=== PATIENT | male | born 1970 | race African-American/Black ===

== ENCOUNTER 2019-04-06 09:06 | Emergency (ER) | payer BC, MEDICAID ==
[2019-04-06 09:33] VITALS: BP 138/94
[2019-04-06] MEDS ORDERED: FLUTICASONE NASAL SPRAY 50 MCG/SPRY 120 SPRAY/16 GM NASL ONE (10:25)
--- NOTE | 2019-04-06 10:31 | ER Document Report ---
HPI - HPI Patient complains to provider of: sore throat , stuffy nose Time Seen by Provider: 04/06/19 10:21 Onset: Other - 2 weeks nasal congestion, one week sore throat Quality of pain: Achy Pain Level: Denies Context: 49-year-old male with no prior history presents emergency department with complaints of nasal congestion sinus pain for the past 2 weeks with sore throat 1 week. Denies fever vomiting diarrhea. Reports he has taken [id number] medications without relief of symptoms. Reports his nose is stuffy and sometimes he cannot breathe out of his right nare. Denies cough. Denies abdominal pain. Reports he is eating drinking voiding bowel movement as normal. Associated Symptoms: Sinus pain/drainage, Sore throat Exacerbated by: Denies Relieved by: Denies Similar symptoms previously: No Recently seen / treated by doctor: No Past Medical History - General Information source: Patient - Social History Smoking Status: Current Every Day Smoker Cigarette use (# per day): Yes Chew tobacco use (# tins/day): No Frequency of alcohol use: None Drug Abuse: None Occupation: [employer] Family History: Reviewed & Not Pertinent Patient has suicidal ideation: No Patient has homicidal ideation: No - Medical History Medical History: Negative Past Surgical History: Reports: Other - hernia repair - Immunizations Hx Diphtheria, Pertussis, Tetanus Vaccination: Yes Vertical Provider Document - CONSTITUTIONAL Agree With Documented VS: Yes Exam Limitations: No Limitations General Appearance: WD/WN, No Apparent Distress - INFECTION CONTROL TRAVEL OUTSIDE OF THE [place] IN LAST 30 DAYS: No - HEENT HEENT: Atraumatic, Normocephalic, Pharyngeal Erythema - Tonsillar hypertrophy good airway clear voice. negative: Conjuctival Injection Notes: c/o maxillary sinus ttp - NECK Neck: Normal Inspection - Tonsillar hypertrophy, clear voice, opens mouth wide, Supple. negative: Lymphadenopathy-Left, Lymphadenopathy-Right - RESPIRATORY Respiratory: Breath Sounds Normal, No Respiratory Distress - CARDIOVASCULAR Cardiovascular: Regular Rate, Regular Rhythm - GI/ABDOMEN Gastrointestinal: Abdomen Soft, Abdomen Non-Tender - MUSCULOSKELETAL/EXTREMETIES Musculoskeletal/Extremeties: MAEW, FROM - NEURO Level of Consciousness: Awake, Alert, Appropriate Motor/Sensory: No Motor Deficit - DERM Integumentary: Warm, Dry Course - Re-evaluation Re-evalutation: 04/06/19 11:17 Laboratory 04/06/19 10:25 Group A Strep Rapid NEGATIVE 49-year-old male presents with complaints of sore throat ear pain sinus congestion and pain. Strep is negative. Throat culture pending. Patient will be treated with Flonase for his congestion and Augmentin for sinusitis. He was instructed on all results. Instructed on signs and symptoms of allergic reaction to Augmentin. Instructed on the importance of monitoring his temperature push fluids follow-up with primary care return for concerns. He verbalized understanding to all instructions - Vital Signs Vital signs: Temp Pulse Resp BP Pulse Ox 98.5 F 78 16 138/94 H 98 04/06/19 09:29 04/06/19 09:29 04/06/19 09:29 04/06/19 09:29 04/06/19 09:29 Discharge - Discharge Clinical Impression: Sore throat Sinusitis Qualifiers: Sinusitis location: maxillary Chronicity: acute Recurrence: not specified as recurrent Qualified Code(s): J01.00 - Acute maxillary sinusitis, unspecified Condition: Stable Disposition: HOME, SELF-CARE Instructions: Augmentin ([facility]), Nasal Corticosteroid Inhaler ([facility]), Sinusitis ([facility]), Sore Throat ([facility]) Additional Instructions: *You have been evaluated for a sore throat, sinusitis *Your strep test was negative. A throat culture is pending. You may be contacted in 3 to 4 days should you need antibiotics *In the meantime gargle with warm salt water and suck on throat lozenges for comfort *Take medication as prescribed *Flonase Nasal [place]: 1 or 2 sprays (50 mcg/spray) in each nostril once a day as needed for one month *Do not let anyone drink/eat after you, push fluids *Good hand washing *Monitor your temperature, take Tylenol or Motrin as indicated *Follow-up with a primary care provider within 1 week for recheck *Return to ED for worsening condition change, needs Monitor your blood pressure. Your blood pressure was elevated today. This may be because you were anxious, in pain or because you need medication. It is important to follow up with your primary care provider for full evaluation. Prescriptions: Amoxicillin/Potassium Clav [Augmentin 875-125 Tablet] 1 each PO BID #20 tablet Forms: Elevated Blood Pressure, Return to Work
== END 2019-04-06 11:40 | disposition home or self-care (01) ==
LOC: ER 09:06
DX: J01.00 Acute maxillary sinusitis, unspecified (principal); J02.9 Acute pharyngitis, unspecified; R09.81 Nasal congestion; F17.210 Nicotine dependence, cigarettes, uncomplicated
CPT/HCPCS: 87070; 87880; 99282